=== PATIENT | male | born 1985 | race Caucasian/White ===

== ENCOUNTER 2020-03-17 09:48 | Emergency (ER) | payer MEDICAID, OTHER ==
[~2020-03-17] VITALS: Ht 165.1 cm; Wt 71.9 kg
[2020-03-17 10:09] VITALS: BP 146/82
[2020-03-17] MEDS ORDERED: LIDOCAINE-MPF 1%, 5ML INFIL ONE (10:30)
[2020-03-17] MEDS ORDERED: DIPH,PERTUSS(ACELL),TET VAC/PF 0.5 ML IM-VACC ONE ×2 (10:30→11:03)
[2020-03-17] MEDS ORDERED: LIDOCAINE-MPF 1%, 5ML ONE (10:56)
--- NOTE | 2020-03-17 11:34 | NUR ---
tdap per mar irrig done xr shows no fx plan sutures. as
[2020-03-17] MEDS ORDERED: NEOSPORIN OINT. PKT 1 PACKET ONE (11:55)
== END 2020-03-17 12:11 | disposition home or self-care (01) ==
LOC: ED 12:00
DX: S61.411A Laceration without foreign body of right hand, initial encounter (principal); W25.XXXA Contact with sharp glass, initial encounter; Y93.89 Activity, other specified; Y92.098 Other place in other non-institutional residence as the place of occurrence of the external cause; Y99.8 Other external cause status
CPT/HCPCS: 12001; 90471; 90715; 99283